=== PATIENT | female | born 1960 | race Caucasian/White ===

== ENCOUNTER 2017-10-24 07:05 | Day surgery (SDC) | payer OTHER ==
[~2017-10-24] VITALS: Ht 162.6 cm; Wt 116.6 kg
[~2017-10-24 07:05] MED LIST: ATEN50; ATOR10 PO; CENTRUM SILVER1 EAC3 PO; CYCL10 PO; DULO30 PO; ERGO400 PO; FURO40 PO; GABA100 PO; GLIP5 PO; Gemfibrozil600 MG PO; HYDR1TAB94 PO; LOTENSIN PO; METO100ER PO; NITR.4SL SL; POTA10T PO; PROBIOTIC1 EAC1 PO; SODBIC650 PO
== END 2017-10-24 09:31 | disposition home or self-care (01) ==
LOC: ORSCMMR 07:05
PROVIDERS: Surgery
PROC: 0DBH8ZX Excision of Cecum, Via Natural or Artificial Opening Endoscopic, Diagnostic (ICD-10-PCS; principal; 2017-10-24 08:30)
PROC: 0DBL8ZX Excision of Transverse Colon, Via Natural or Artificial Opening Endoscopic, Diagnostic (ICD-10-PCS; principal; 2017-10-24 08:30)
DX: Z12.11 Encounter for screening for malignant neoplasm of colon (principal); D12.0 Benign neoplasm of cecum; D12.3 Benign neoplasm of transverse colon; I10 Essential (primary) hypertension; I25.2 Old myocardial infarction; I25.10 Atherosclerotic heart disease of native coronary artery without angina pectoris; E11.9 Type 2 diabetes mellitus without complications; E66.01 Morbid (severe) obesity due to excess calories; Z68.41 Body mass index [BMI] 40.0-44.9, adult; Z79.899 Other long term (current) drug therapy
CPT/HCPCS: 82947; 88305; J7120

== ENCOUNTER → 2018-01-05 | Outpatient (CLI) | payer OTHER ==
[~2018-01-05] MED LIST changes: +ACET325 PO; +PRED20
== END ==
LOC: LAB SHORT 07:40 → PLD 07:40
DX: D22.5 Melanocytic nevi of trunk (principal)
CPT/HCPCS: 88305

== ENCOUNTER 2018-05-28 13:38 | Emergency (ER) | payer OTHER ==
[~2018-05-28] VITALS: Ht 165.1 cm; Wt 99.8 kg
[~2018-05-28 13:38] MED LIST changes: -ACET325 PO; -PRED20
== END 2018-05-28 14:35 | disposition home or self-care (01) ==
LOC: ER 13:38
DX: M79.671 Pain in right foot (principal); Z79.899 Other long term (current) drug therapy; I25.2 Old myocardial infarction; F17.290 Nicotine dependence, other tobacco product, uncomplicated
CPT/HCPCS: 73620; 99283-25

== ENCOUNTER 2018-06-01 17:07 | Inpatient (IN) | payer OTHER ==
[~2018-06-01] VITALS: Ht 165.1 cm; Wt 111.1 kg
[2018-06-01 19:19] LABS: BASOPHILS ABSOLUTE AUTO 0.05 K/mm3 (0.00-0.23); BASOPHILS PERCENT AUTO 1 % (0-2); EOSINOPHILS ABSOLUTE AUTO 0.16 K/mm3 (0.00-0.68); EOSINOPHILS PERCENT AUTO 2 % (0-6); Hematocrit 37.5 % (33.0-51.0); IMMATURE GRAN ABSOLUTE AUTO 0.06 K/mm3 (0.00-0.10); IMMATURE GRAN PERCENT AUTO 1 % (0-1); LYMPHOCYTES ABSOLUTE AUTO 1.92 K/mm3 (0.84-5.20); LYMPHOCYTES PERCENT AUTO 22 % (21-46); MONOCYTES ABSOLUTE AUTO 0.77 K/mm3 (0.16-1.47); MONOCYTES PERCENT AUTO 9 % (4-13); Mean Corpuscular HGB 29.4 pg (26.0-34.0); Mean Corpuscular Volume 92 fL (80-100); Mean Platelet Volume 9.4 fL (9.1-12.4); NEUTROPHILS ABSOLUTE AUTO 5.66 K/mm3 (1.96-9.15); NEUTROPHILS PERCENT AUTO 66 % (41-73); Platelet Count 259 K/mm3 (150-400); RDW Coefficient Variation 13.4 % (11.7-14.2); RDW Standard Deviation 45.5 fL (35.1-46.3); Red Blood Cell Count 4.08 M/mm3 (3.80-5.20); White Blood Cell Count 8.62 K/mm3 (4.00-11.30)
[2018-06-01 19:41] LABS: Alanine Aminotransfer (ALT/SGP 16 U/L (12-78); Albumin, Blood 3.4 g/dL (3.4-5.0); Albumin/Globulin Ratio 0.7 (0.8-1.8); Alk Phos 100 U/L (50-136); Anion Gap 13 mmol/L (6-16); Aspartate Aminotrans (AST/SGOT 12 U/L (12-37); Bilirubin, Total 0.3 mg/dL (0.1-1.0); Blood Urea Nitrogen 36 mg/dL (8-24); Bun/Creatinine Ratio 14.5 (12.0-20.0); CO2, Blood 19 mmol/L (21-32); Calcium, Blood 9.6 mg/dL (8.5-10.1); Chloride, Blood 106 mmol/L (98-108); Creatinine, Blood 2.48 mg/dL (0.40-1.00); Globulin, Blood 4.6 g/dL (2.2-4.0); Glomerular Filtration Rate 21 (60-); Glucose, Blood 124 mg/dL (70-99); Potassium, Blood 4.1 mmol/L (3.5-5.5); Sodium, Blood 138 mmol/L (136-145); Troponin I <0.015 ng/mL (0.000-0.040)
[2018-06-01 22:46] LABS: Uric Acid, Blood 12.3 mg/dL (2.6-6.0)
[2018-06-01 23:25] LABS: CPK Creatine Kinase 91 U/L (26-193); Magnesium, Blood 2.1 mg/dL (1.6-2.4); Phosphorus, Blood 2.8 mg/dL (2.5-4.9)
[2018-06-02 05:35] LABS: Hematocrit 33.1 % (33.0-51.0); Hemoglobin 10.6 g/dL (11.5-16.0); Mean Corpuscular HGB 29.5 pg (26.0-34.0); Mean Corpuscular Volume 92 fL (80-100); Mean Platelet Volume 9.4 fL (9.1-12.4); Platelet Count 196 K/mm3 (150-400); RDW Coefficient Variation 13.4 % (11.7-14.2); RDW Standard Deviation 45.6 fL (35.1-46.3); Red Blood Cell Count 3.59 M/mm3 (3.80-5.20); White Blood Cell Count 6.54 K/mm3 (4.00-11.30)
[2018-06-02 05:56] LABS: Bun/Creatinine Ratio 17.2 (12.0-20.0); Calcium, Blood 8.5 mg/dL (8.5-10.1); Creatinine, Blood 2.04 mg/dL (0.40-1.00); Potassium, Blood 3.7 mmol/L (3.5-5.5)
[2018-06-03 05:10] LABS: BASOPHILS ABSOLUTE AUTO 0.01 K/mm3 (0.00-0.23); BASOPHILS PERCENT AUTO 0 % (0-2); EOSINOPHILS ABSOLUTE AUTO 0.03 K/mm3 (0.00-0.68); EOSINOPHILS PERCENT AUTO 0 % (0-6); Hematocrit 33.2 % (33.0-51.0); Hemoglobin 10.6 g/dL (11.5-16.0); IMMATURE GRAN ABSOLUTE AUTO 0.06 K/mm3 (0.00-0.10); IMMATURE GRAN PERCENT AUTO 1 % (0-1); LYMPHOCYTES ABSOLUTE AUTO 1.04 K/mm3 (0.84-5.20); LYMPHOCYTES PERCENT AUTO 15 % (21-46); MONOCYTES ABSOLUTE AUTO 0.37 K/mm3 (0.16-1.47); MONOCYTES PERCENT AUTO 5 % (4-13); Mean Corpuscular HGB 29.3 pg (26.0-34.0); Mean Corpuscular HGB Conc 31.9 g/dL (31.5-36.5); Mean Corpuscular Volume 92 fL (80-100); Mean Platelet Volume 9.2 fL (9.1-12.4); NEUTROPHILS ABSOLUTE AUTO 5.35 K/mm3 (1.96-9.15); NEUTROPHILS PERCENT AUTO 78 % (41-73); Platelet Count 241 K/mm3 (150-400); RDW Standard Deviation 43.8 fL (35.1-46.3); Red Blood Cell Count 3.62 M/mm3 (3.80-5.20); White Blood Cell Count 6.86 K/mm3 (4.00-11.30)
[2018-06-03 05:31] LABS: Bun/Creatinine Ratio 22.3 (12.0-20.0); Calcium, Blood 8.7 mg/dL (8.5-10.1); Creatinine, Blood 1.12 mg/dL (0.40-1.00); Potassium, Blood 4.5 mmol/L (3.5-5.5)
[2018-06-03 05:39] LABS: Percent Saturation 19.5 % (15.0-50.0)
[2018-06-04 04:55] LABS: BASOPHILS ABSOLUTE AUTO 0.02 K/mm3 (0.00-0.23); BASOPHILS PERCENT AUTO 0 % (0-2); EOSINOPHILS ABSOLUTE AUTO 0.07 K/mm3 (0.00-0.68); EOSINOPHILS PERCENT AUTO 1 % (0-6); Hematocrit 32.7 % (33.0-51.0); Hemoglobin 10.6 g/dL (11.5-16.0); IMMATURE GRAN ABSOLUTE AUTO 0.08 K/mm3 (0.00-0.10); IMMATURE GRAN PERCENT AUTO 1 % (0-1); LYMPHOCYTES ABSOLUTE AUTO 1.47 K/mm3 (0.84-5.20); LYMPHOCYTES PERCENT AUTO 22 % (21-46); MONOCYTES ABSOLUTE AUTO 0.25 K/mm3 (0.16-1.47); MONOCYTES PERCENT AUTO 4 % (4-13); Mean Corpuscular HGB 29.2 pg (26.0-34.0); Mean Corpuscular HGB Conc 32.4 g/dL (31.5-36.5); Mean Corpuscular Volume 90 fL (80-100); NEUTROPHILS ABSOLUTE AUTO 4.82 K/mm3 (1.96-9.15); NEUTROPHILS PERCENT AUTO 72 % (41-73); Platelet Count 239 K/mm3 (150-400); RDW Standard Deviation 42.8 fL (35.1-46.3); Red Blood Cell Count 3.63 M/mm3 (3.80-5.20); White Blood Cell Count 6.71 K/mm3 (4.00-11.30)
[2018-06-04 05:13] LABS: Bun/Creatinine Ratio 20.9 (12.0-20.0); Calcium, Blood 8.8 mg/dL (8.5-10.1); Creatinine, Blood 1.15 mg/dL (0.40-1.00)
[2018-06-04 11:45] LABS: Source, Urine Clean Catch
[2018-06-04 11:50] LABS: Bilirubin, Urine Neg (Neg); Blood, Urine Neg (Neg); Glucose Qualitative, Urine Neg (Neg); Ketones, Urine Neg (Neg); Leukocyte Esterase, Urine 1+ (Neg); Nitrite, Urine Pos (Neg); Protein, Urine Neg (Neg); Specific Gravity, Urine 1.015 (1.003-1.022); Urobilinogen, Urine NORM (Normal)
[2018-06-04 12:18] LABS: Color, Urine Yellow (P-Yellow)
[2018-06-04 12:19] LABS: Appearance, Urine Hazy (Clear)
[2018-06-04 12:25] LABS: Bacteria Many /hpf; Red Blood Cells, Urine Not Seen /hpf (0-2); Squamous Epithelial Cells Mod /hpf (Few)
[2018-06-05 05:44] LABS: Creatinine, Blood 1.05 mg/dL (0.40-1.00); Potassium, Blood 3.7 mmol/L (3.5-5.5)
[2018-06-05] MEDS ORDERED: ACET325 PO (08:04)
[2018-06-05] MEDS ORDERED: PRED20 (08:05)
== END 2018-06-05 13:16 | disposition home health service (06) | DRG 684 ==
LOC: ER 17:07 → MEDS 22:51 → ENPENDDIS 06-05 07:30 → MEDS 06-05 13:16
PROVIDERS: Internal Medicine; Nurse Practitioner Acute Care
DX: N17.9 Acute kidney failure, unspecified (principal); I71.4 Abdominal aortic aneurysm, without rupture; E78.5 Hyperlipidemia, unspecified; F17.290 Nicotine dependence, other tobacco product, uncomplicated; E78.00 Pure hypercholesterolemia, unspecified; Z79.84 Long term (current) use of oral hypoglycemic drugs; M10.9 Gout, unspecified; E86.9 Volume depletion, unspecified; D64.9 Anemia, unspecified; M25.571 Pain in right ankle and joints of right foot; Z68.39 Body mass index [BMI] 39.0-39.9, adult; E66.9 Obesity, unspecified; N18.3 Chronic kidney disease, stage 3 (moderate); I12.9 Hypertensive chronic kidney disease with stage 1 through stage 4 chronic kidney disease, or unspecified chronic kidney disease; R00.0 Tachycardia, unspecified; F32.9 Major depressive disorder, single episode, unspecified; E11.65 Type 2 diabetes mellitus with hyperglycemia; E11.22 Type 2 diabetes mellitus with diabetic chronic kidney disease
CPT/HCPCS: 36415; 73700; 80048; 80053; 81001; 82550; 82570; 82728; 82947; 83540; 83550; 83735; 84100; 84484; 84550; 85025; 85027; 87077; 87086; 87186; 93005; 93010; 96360; 96361; 97110; 97116; 97161; 99285-25; G8978; G8979; J1644; J7030; J7120

== ENCOUNTER 2019-10-27 16:10 | Inpatient (IN) | payer OTHER ==
[~2019-10-27] VITALS: Ht 157.5 cm; Wt 81.7 kg
[~2019-10-27 16:10] MED LIST changes: +ACET325 PO; +METO50ER PO; +PRED20
[2019-10-27] MEDS ORDERED: METF500C PO (16:32)
[2019-10-27] MEDS ORDERED: BENA20 PO (16:32)
[2019-10-27] MEDS ORDERED: ALLO100 PO (16:32)
[2019-10-27] MEDS ORDERED: TOPI25C (16:33)
[2019-10-27] MEDS ORDERED: GEMF600 PO (16:33)
[2019-10-27] MEDS ORDERED: AMLO5 PO (16:33)
[2019-10-27] MEDS ORDERED: CYCL10 PO (16:34)
[2019-10-27] MEDS ORDERED: OXYB5 PO (16:34)
[2019-10-27] MEDS ORDERED: COLCHICINE0.6 MG PO (16:35)
[2019-10-27] MEDS ORDERED: BUPR75 PO ×2 (16:35→18:08)
[2019-10-27 17:12] LABS: Hematocrit 35.8 % (33.0-51.0); Hemoglobin 11.7 g/dL (11.5-16.0); Mean Corpuscular HGB 28.8 pg (26.0-34.0); Mean Corpuscular HGB Conc 32.7 g/dL (31.5-36.5); Mean Corpuscular Volume 88 fL (80-100); Platelet Count 464 K/mm3 (150-400); RDW Coefficient Variation 14.7 % (11.7-14.2); RDW Standard Deviation 47.7 fL (35.1-46.3); Red Blood Cell Count 4.06 M/mm3 (3.80-5.20); White Blood Cell Count 16.77 K/mm3 (4.00-11.30)
[2019-10-27 17:34] LABS: Albumin, Blood 1.8 g/dL (3.4-5.0); Albumin/Globulin Ratio 0.3 (0.8-1.8); Bilirubin, Total 0.6 mg/dL (0.1-1.0); Bun/Creatinine Ratio 29.7 (12.0-20.0); Calcium, Blood 9.6 mg/dL (8.5-10.1); Creatinine, Blood 1.58 mg/dL (0.40-1.00); Globulin, Blood 5.7 g/dL (2.2-4.0); Total Protein, Blood 7.5 g/dL (6.4-8.2)
[2019-10-27 17:55] LABS: BAND PERCENT MAN 8 % (0-8); BASOPHILS PERCENT MAN 0 % (0-2); EOSINOPHILS PERCENT MAN 0 % (0-6); LYMPHOCYTES PERCENT MAN 3 % (21-46); MONOCYTES PERCENT MAN 0 % (4-13); NEUTROPHILS ABSOLUTE MAN 16.26 K/mm3 (1.96-9.15); SEG NEUTROPHILS PERCENT MAN 89 % (41-73); TOTAL CELLS COUNTED 100
[2019-10-27] MEDS ORDERED: B-121000 MC3 PO (18:04)
[2019-10-27] MEDS ORDERED: Metformin HCl750 MG PO (18:04)
[2019-10-27] MEDS ORDERED: Benazepril HCl20 MG PO (18:05)
[2019-10-27] MEDS ORDERED: Oxybutynin Chlo10 MG PO (18:06)
[2019-10-27] MEDS ORDERED: TOPI25 PO (18:06)
[2019-10-27] MEDS ORDERED: DULO30 PO (18:10)
[2019-10-27] MEDS ORDERED: GEMFIBROZIL600 MG PO (18:10)
[2019-10-27 19:14] LABS: Influenza A Negative (NEGATIVE); Influenza B Negative (NEGATIVE)
--- NOTE | 2019-10-27 20:13 | NUR ---
PT TO SURGICAL FLOOR FROM ED. ORIENTED TO ROOM. PERSONAL BELONGINGS IN ROOM WITH PT. PT IS ON 3.5L O2 NC AND RR IS ABOUT 28-30. SHE IS VERY HARD OF HEARING. BED ALARM ON.
[2019-10-28 04:06] LABS: BASOPHILS ABSOLUTE AUTO 0.03 K/mm3 (0.00-0.23); BASOPHILS PERCENT AUTO 0 % (0-2); Hematocrit 30.7 % (33.0-51.0); Hemoglobin 9.9 g/dL (11.5-16.0); LYMPHOCYTES ABSOLUTE AUTO 0.59 K/mm3 (0.84-5.20); LYMPHOCYTES PERCENT AUTO 5 % (21-46); MONOCYTES ABSOLUTE AUTO 0.18 K/mm3 (0.16-1.47); MONOCYTES PERCENT AUTO 1 % (4-13); Mean Corpuscular HGB 28.9 pg (26.0-34.0); Mean Corpuscular HGB Conc 32.2 g/dL (31.5-36.5); Mean Corpuscular Volume 90 fL (80-100); Platelet Count 365 K/mm3 (150-400); RDW Coefficient Variation 14.9 % (11.7-14.2); RDW Standard Deviation 49.2 fL (35.1-46.3); Red Blood Cell Count 3.42 M/mm3 (3.80-5.20); White Blood Cell Count 12.82 K/mm3 (4.00-11.30)
[2019-10-28 04:07] LABS: EOSINOPHILS ABSOLUTE AUTO 0.02 K/mm3 (0.00-0.68); EOSINOPHILS PERCENT AUTO 0 % (0-6); IMMATURE GRAN ABSOLUTE AUTO 0.72 K/mm3 (0.00-0.10); IMMATURE GRAN PERCENT AUTO 6 % (0-1); NEUTROPHILS ABSOLUTE AUTO 11.28 K/mm3 (1.96-9.15); NEUTROPHILS PERCENT AUTO 88 % (41-73)
--- NOTE | 2019-10-28 04:08 | NUR ---
SHIFT SUMMARY PT IS A/O, HOWEVER SHE IS VERY HARD OF HEARING AND HAS A DIFFICULT TIME COMMUNICATING. NOTE PAD HAS BEEN USED TO COMMUNICATE WITH PT. PT IS INCONTINENT OF URINE AND HAS ATTENS IN PLACE. BEDDING WAS CHANGED THIS SHIFT. PT IS 2X ASSIST TO COMMODE. SHE HAS BEEN SHORT OF BREATH, REQUIRING 3-4L O2 NC. PT HAS HAD RESP TREATMENTS PRN. BED ALARM HAS BEEN ON. TELE IN PLACE. ASSISTED WITH ADL'S PRN.
[2019-10-28 04:23] LABS: Albumin, Blood 1.5 g/dL (3.4-5.0); Albumin/Globulin Ratio 0.3 (0.8-1.8); Bilirubin, Total 0.5 mg/dL (0.1-1.0); Bun/Creatinine Ratio 35.9 (12.0-20.0); Calcium, Blood 8.9 mg/dL (8.5-10.1); Creatinine, Blood 1.28 mg/dL (0.40-1.00); Globulin, Blood 4.8 g/dL (2.2-4.0); Total Protein, Blood 6.3 g/dL (6.4-8.2)
[2019-10-28 04:37] LABS: BAND PERCENT MAN 4 % (0-8); BASOPHILS PERCENT MAN 0 % (0-2); EOSINOPHILS PERCENT MAN 0 % (0-6); LYMPHOCYTES ABSOLUTE MAN 0.89 K/mm3 (0.84-5.20); LYMPHOCYTES PERCENT MAN 7 % (21-46); MONOCYTES PERCENT MAN 0 % (4-13); NEUTROPHILS ABSOLUTE MAN 11.79 K/mm3 (1.96-9.15); PROMYELOCYTE ABSOLUTE MAN 0.12 K/mm3 (0.00-0.00); PROMYELOCYTE PERCENT MAN 1 % (0-0); SEG NEUTROPHILS PERCENT MAN 88 % (41-73); TOTAL CELLS COUNTED 100
--- NOTE | 2019-10-28 11:05 | NUR ---
DR ALVAREZ CALLED WITH + BC RESULTS
--- NOTE | 2019-10-28 11:16 | NUR ---
Patient Authorized student to provide care today. 10/28/2019
--- NOTE | 2019-10-28 18:27 | NUR ---
SHIFT SUMMARY PATIENT BREATHING EASIER THAN FIRST NOTED THIS AM. HAS C/O LEFT FLANK PAIN WHICH PATIENT REPORTS HAS BEEN CONTROLLED WITH APAP. COUGH IMPROVED THIS AFTERNOON. TAKING PO W/O C/O. CALLS FOR ASSIST. NO ACUTE CHANGES.
--- NOTE | 2019-10-29 02:37 | NUR ---
@1945 ORDERS WERE RECIEVED FOR PAIN MEDICATION FOR PAIN 06/29. PAIN LOCATED IN THE RT LATERAL SIDE OF THE ABDOMEN AND RADIATED TO THE RT FRONT ABDOMEN. MEDICATED PER ORDERS. PATIENT DID HAVE SOME RELEIF INITIALLY. i DID RECIEVE NEW ORDERS @2330 FOR PAIN MEDICATIONS. AT THIS POINT IT WAS MORE APPATENT THAT THE PAIN WAS ASSOCIATED WITH BREATHING AND ATTEMPTS TO COUGH. PATIENT WAS MEDICATED PER ORDERS.
--- NOTE | 2019-10-29 04:06 | NUR ---
REPORT TO SHANE GASTON. NO ACUTE CHANGES. RT ABDOMINAL PAIN IS CONTROLLED WITH FENTANYL PRN. PT ALSO RECIEVED TYLENOL PO FOR HEADACHE THIS MORNING.
[2019-10-29 10:01] LABS: Hematocrit 31.6 % (33.0-51.0); Hemoglobin 10.1 g/dL (11.5-16.0); Mean Corpuscular Volume 91 fL (80-100); Mean Platelet Volume 9.8 fL (9.1-12.4); Platelet Count 387 K/mm3 (150-400); RDW Coefficient Variation 15.2 % (11.7-14.2); RDW Standard Deviation 50.7 fL (35.1-46.3); Red Blood Cell Count 3.48 M/mm3 (3.80-5.20); White Blood Cell Count 10.31 K/mm3 (4.00-11.30)
[2019-10-29 10:16] LABS: Anion Gap 10 mmol/L (6-16); Blood Urea Nitrogen 29 mg/dL (8-24); Bun/Creatinine Ratio 35.8 (12.0-20.0); CO2, Blood 16 mmol/L (21-32); Calcium, Blood 8.9 mg/dL (8.5-10.1); Chloride, Blood 111 mmol/L (98-108); Creatinine, Blood 0.81 mg/dL (0.40-1.00); Glomerular Filtration Rate >60 (60-); Glucose, Blood 93 mg/dL (70-99); Sodium, Blood 137 mmol/L (136-145)
[2019-10-29 11:21] LABS: BAND PERCENT MAN 2 % (0-8); BASOPHILS PERCENT MAN 0 % (0-2); EOSINOPHILS PERCENT MAN 2 % (0-6); LYMPHOCYTES ABSOLUTE MAN 0.51 K/mm3 (0.84-5.20); LYMPHOCYTES PERCENT MAN 5 % (21-46); MONOCYTES PERCENT MAN 1 % (4-13); MYELOCYTE PERCENT MAN 1 % (0-0); NEUTROPHILS ABSOLUTE MAN 9.38 K/mm3 (1.96-9.15); SEG NEUTROPHILS PERCENT MAN 89 % (41-73); TOTAL CELLS COUNTED 100
--- NOTE | 2019-10-29 17:46 | NUR ---
SUMMARY PATIENT CALLING OUT AND GRASPING RIGHT FLANK AT TIMES AND REPORTS PAIN IN THIS AREA, PATIENT MOANS AND CALLS OUT AT TIMES WHILE SHE IS AWAKE.. PATIENT IS SLEEPING SOUNDLY AT THIS TIME WITH EVEN, UNLABORED RESPIRATIONS. PT HAS OCC. DRY COUGH. BARBI. PO FOOD AND FLUIDS WITHOUT NAUSEA. PATIENT REPORTS MUCH DIFFICULTY HEARING SO COMMUNICATING BY WRITING NOTES AND LETTER BOARD. PER PATIENTS DAUGHTER PATIENT IS NORMALLY HARD OF HEARING BUT NOT TO THE EXTENT THAT IT IS NECESSARY TO COMMUNICATE WITH WRITTEN NOTES.
--- NOTE | 2019-10-30 04:27 | NUR ---
SHIFT SUMMARY PT HAS BEEN AA0X4, VSS. PT IS VERY H.O.H. SO IT IS DIFFICULT TO UNDERSTAND AT TIMES. PATIENT HAS BEEN REPOSITIONING SELF IN BED FREQUENTLTY AND DENIED PAIN DURING SHIFT WHEN ASKED. SATS >92% DURING SHIFT AND PT REPORTS SOB BUT STATED THAT WAS HER NORMAL. PT UP TO VOID WITH ASSIST. LUNG SOUNDS WERE COARSE AND DIMINISHED THROUGHOUT, PT STATED SHE "FELT BETTER". TOLERATING PO WELL.
[2019-10-30 04:56] LABS: Hematocrit 32.2 % (33.0-51.0); Hemoglobin 10.1 g/dL (11.5-16.0); Mean Corpuscular HGB 28.9 pg (26.0-34.0); Mean Corpuscular HGB Conc 31.4 g/dL (31.5-36.5); Mean Corpuscular Volume 92 fL (80-100); Mean Platelet Volume 9.6 fL (9.1-12.4); Platelet Count 384 K/mm3 (150-400); RDW Coefficient Variation 15.6 % (11.7-14.2); Red Blood Cell Count 3.49 M/mm3 (3.80-5.20); White Blood Cell Count 10.03 K/mm3 (4.00-11.30)
[2019-10-30 05:11] LABS: Anion Gap 11 mmol/L (6-16); Blood Urea Nitrogen 22 mg/dL (8-24); Bun/Creatinine Ratio 29.9 (12.0-20.0); CO2, Blood 17 mmol/L (21-32); Calcium, Blood 8.6 mg/dL (8.5-10.1); Chloride, Blood 112 mmol/L (98-108); Creatinine, Blood 0.74 mg/dL (0.40-1.00); Glomerular Filtration Rate >60 (60-); Glucose, Blood 97 mg/dL (70-99); Potassium, Blood 3.5 mmol/L (3.5-5.5); Sodium, Blood 140 mmol/L (136-145)
[2019-10-30 05:15] LABS: BAND PERCENT MAN 6 % (0-8); BASOPHILS PERCENT MAN 0 % (0-2); EOSINOPHILS PERCENT MAN 3 % (0-6); LYMPHOCYTES PERCENT MAN 9 % (21-46); METAMYELOCYTE PERCENT MAN 2 % (0-0); MONOCYTES PERCENT MAN 2 % (4-13); MYELOCYTE PERCENT MAN 1 % (0-0); NEUTROPHILS ABSOLUTE MAN 8.32 K/mm3 (1.96-9.15); SEG NEUTROPHILS PERCENT MAN 77 % (41-73); TOTAL CELLS COUNTED 100
--- NOTE | 2019-10-30 18:27 | NUR ---
SUMMARY DENIES ANY SOB BUT PT APPEARS EASILY SOB WITH LITTLE ACTIVITY, CONT. TO HAVE MOIST COUGH, PRODUCTIVE OF PINK TINGED/GREEN SPUTUM THIS AFTERNOON, SATS 94-97% ON RA, TOOK A SHOWER TODAY, TOLERATED WELL, VSS, AFEBRILE, NO ACUTE CHANGES THIS SHIFT.
--- NOTE | 2019-10-31 03:09 | NUR ---
SPOKE TO DR NICHOLAS ABOUT PTS INCREASED RESPIRATIONS AND CRACKLES THROUGHOUT. ORDERS GIVEN TO GET A CHEST X-RAY AND FOLLOW UP WITH DR NICHOLAS.
--- NOTE | 2019-10-31 03:37 | NUR ---
CHEST X-RAY DONE. DR NICHOLAS AWARE. PLAN TO COME AND SEE PT.
--- NOTE | 2019-10-31 03:53 | NUR ---
DR NICHOLAS IN TO SEE PT. PT APPEARS TO BE BREATHING BETTER SINCE R.T. WORKED WITH HER. PLAN TO CONTINUE TO OBSERVE PT.
--- NOTE | 2019-10-31 04:34 | NUR ---
SHIFT SUMMARY PT ALERT AND ORIENTED, DIFFICULT TO UNDERSTAND AT TIMES. HAS BEEN HAVING SOME SMALL AUDITORY AND VISUAL HALLUCINATIONS, SHE STATED THAT THIS HAPPENS TO HER SOMETIMES. VSS RESPIRATIONS ELEVATED AT 3AM CHECK. LUNG SOUNDS WERE VERY CRACKLY. CHEST X-RAY ORDERED AND NO NEW ORDERS GIVEN AT THIS TIME. RESPIRATORY THERAPY WORKED WITH PT AND SHE IS NOT STRUGGLING TO BREATH MUCH, RESPIRATIONS WERE DOWN TO 18-20. PT HAS BEEN UP TO VOID WITH MINIMAL ASSIST, SHE HAS NOT BEEN USIGN CALL LIGHT EVEN WITH FREQUENT REEDUCATION. PT HAS BEEN COOPERATIVE DURING SHIFT.
[2019-10-31 05:02] LABS: Hematocrit 34.3 % (33.0-51.0); Hemoglobin 10.6 g/dL (11.5-16.0); Mean Corpuscular HGB 28.9 pg (26.0-34.0); Mean Corpuscular HGB Conc 30.9 g/dL (31.5-36.5); Mean Corpuscular Volume 94 fL (80-100); Mean Platelet Volume 9.6 fL (9.1-12.4); Platelet Count 362 K/mm3 (150-400); RDW Coefficient Variation 15.4 % (11.7-14.2); RDW Standard Deviation 53.2 fL (35.1-46.3); Red Blood Cell Count 3.67 M/mm3 (3.80-5.20); White Blood Cell Count 10.89 K/mm3 (4.00-11.30)
[2019-10-31 05:20] LABS: Albumin, Blood 1.6 g/dL (3.4-5.0); Anion Gap 10 mmol/L (6-16); Blood Urea Nitrogen 15 mg/dL (8-24); Bun/Creatinine Ratio 24.8 (12.0-20.0); CO2, Blood 19 mmol/L (21-32); Calcium, Blood 8.4 mg/dL (8.5-10.1); Chloride, Blood 111 mmol/L (98-108); Glomerular Filtration Rate >60 (60-); Glucose, Blood 123 mg/dL (70-99); Phosphorus, Blood 2.9 mg/dL (2.5-4.9); Potassium, Blood 3.4 mmol/L (3.5-5.5); Sodium, Blood 140 mmol/L (136-145)
[2019-10-31 05:28] LABS: BAND PERCENT MAN 10 % (0-8); BASOPHILS PERCENT MAN 0 % (0-2); EOSINOPHILS ABSOLUTE MAN 0.21 K/mm3 (0.00-0.68); EOSINOPHILS PERCENT MAN 2 % (0-6); LYMPHOCYTES ABSOLUTE MAN 0.54 K/mm3 (0.84-5.20); LYMPHOCYTES PERCENT MAN 5 % (21-46); METAMYELOCYTE ABSOLUTE MAN 0.21 K/mm3 (0.00-0.00); METAMYELOCYTE PERCENT MAN 2 % (0-0); MONOCYTES ABSOLUTE MAN 0.21 K/mm3 (0.16-1.47); MONOCYTES PERCENT MAN 2 % (4-13); MYELOCYTE PERCENT MAN 1 % (0-0); NEUTROPHILS ABSOLUTE MAN 9.58 K/mm3 (1.96-9.15); SEG NEUTROPHILS PERCENT MAN 78 % (41-73); TOTAL CELLS COUNTED 100
--- NOTE | 2019-10-31 17:01 | NUR ---
SHIFT SUMMARY PT IS A/O ALTHOUGH SHE DOES HAVE DIFFICULTY UNDERSTANDING SOME THINGS AND IS VERY HARD OF HEARING; PT DOES WELL WITH READING NOTES HOWEVER. SHE HAS HAD SOME AUDITORY HALLUCINATIONS DURING THE DAY. SHE IS IND. IN WITH STANDBY ASSIST. TOLERATING PO INTAKE, VOIDING. PT HAS BEEN SEEN BY RT PRN. AND HAS BEEN ON RA THROUGHOUT THE DAY. PT HAS CHRONIC PAIN AND WAS GIVEN PAIN MED PER ORDERS; SEE EMAR.
--- NOTE | 2019-11-01 04:02 | NUR ---
SHIFT SUMMARY PT ALERT AND ORIENTED. DIFFICULTY UNDERSTANDING WHAT IS ASKED AT TIMES. VERY HARD OF HEARING. LUNGS HAVE FINE CRACKLES IN UPPER LOBES AND COARSE IN LOWER. SHE HAS SOUNDED BETTER TOWARDS THE END OF SHIFT. PT HAS BEEN REPOSITIONING FREQUENTLY IN BED AND HAS BEEN COOPERATIVE OF CARE. NO HALLUCINATIONS REPORTED TONIGHT. PT VOIDING AND TOLERATING PO. HAS COMPLAINED OF MINIMAL SOB THIS SHIFT. NEW POWERGLIDE PLACED. PT TOLERATING WELL.
[2019-11-01 04:07] LABS: BASOPHILS PERCENT AUTO 1 % (0-2); Hematocrit 31.2 % (33.0-51.0); Hemoglobin 9.7 g/dL (11.5-16.0); LYMPHOCYTES ABSOLUTE AUTO 1.17 K/mm3 (0.84-5.20); LYMPHOCYTES PERCENT AUTO 10 % (21-46); MONOCYTES ABSOLUTE AUTO 0.45 K/mm3 (0.16-1.47); MONOCYTES PERCENT AUTO 4 % (4-13); Mean Corpuscular HGB Conc 31.1 g/dL (31.5-36.5); Mean Corpuscular Volume 93 fL (80-100); Mean Platelet Volume 9.3 fL (9.1-12.4); NRBC ABSOLUTE 0.05 K/mm3 (0.00-0.02); NRBC Auto 0.4 /100 WBC (0.0-0.2); Platelet Count 326 K/mm3 (150-400); RDW Coefficient Variation 14.9 % (11.7-14.2); RDW Standard Deviation 51.8 fL (35.1-46.3); Red Blood Cell Count 3.35 M/mm3 (3.80-5.20); White Blood Cell Count 11.33 K/mm3 (4.00-11.30)
[2019-11-01 04:09] LABS: EOSINOPHILS ABSOLUTE AUTO 0.09 K/mm3 (0.00-0.68); EOSINOPHILS PERCENT AUTO 1 % (0-6); IMMATURE GRAN ABSOLUTE AUTO 1.61 K/mm3 (0.00-0.10); IMMATURE GRAN PERCENT AUTO 14 % (0-1); NEUTROPHILS ABSOLUTE AUTO 7.91 K/mm3 (1.96-9.15); NEUTROPHILS PERCENT AUTO 70 % (41-73)
[2019-11-01 04:37] LABS: BAND PERCENT MAN 3 % (0-8); BASOPHILS PERCENT MAN 0 % (0-2); BLASTS PERCENT MAN 1 % (0-0); EOSINOPHILS PERCENT MAN 0 % (0-6); LYMPHOCYTES ABSOLUTE MAN 0.79 K/mm3 (0.84-5.20); LYMPHOCYTES PERCENT MAN 7 % (21-46); METAMYELOCYTE ABSOLUTE MAN 0.33 K/mm3 (0.00-0.00); METAMYELOCYTE PERCENT MAN 3 % (0-0); MONOCYTES ABSOLUTE MAN 0.56 K/mm3 (0.16-1.47); MONOCYTES PERCENT MAN 5 % (4-13); MYELOCYTE ABSOLUTE MAN 0.33 K/mm3 (0.00-0.00); MYELOCYTE PERCENT MAN 3 % (0-0); NEUTROPHILS ABSOLUTE MAN 9.17 K/mm3 (1.96-9.15); SEG NEUTROPHILS PERCENT MAN 78 % (41-73); TOTAL CELLS COUNTED 100
--- NOTE | 2019-11-01 10:41 | NUR ---
pt gave me permission to assist with her care 11/01/2019.
--- NOTE | 2019-11-01 17:21 | NUR ---
SHIFT SUMMARY PT EATING AND DRINKING, VOIDING, PASSING GAS. PT BEEN COUGHING OFF AND ON T/O DAY. PT BEEN ASSISTED WITH ADL'S PRN. PT WAS MED PRN FOR PAIN. PT FAMILY IN TO SEE PT TODAY.
[2019-11-02 04:24] LABS: BASOPHILS ABSOLUTE AUTO 0.09 K/mm3 (0.00-0.23); BASOPHILS PERCENT AUTO 1 % (0-2); Hematocrit 32.4 % (33.0-51.0); LYMPHOCYTES ABSOLUTE AUTO 0.98 K/mm3 (0.84-5.20); LYMPHOCYTES PERCENT AUTO 10 % (21-46); MONOCYTES ABSOLUTE AUTO 0.43 K/mm3 (0.16-1.47); MONOCYTES PERCENT AUTO 4 % (4-13); Mean Corpuscular HGB 28.8 pg (26.0-34.0); Mean Corpuscular HGB Conc 30.9 g/dL (31.5-36.5); Mean Corpuscular Volume 93 fL (80-100); Mean Platelet Volume 9.3 fL (9.1-12.4); NRBC ABSOLUTE 0.09 K/mm3 (0.00-0.02); NRBC Auto 0.9 /100 WBC (0.0-0.2); Platelet Count 317 K/mm3 (150-400); RDW Coefficient Variation 14.8 % (11.7-14.2); RDW Standard Deviation 51.2 fL (35.1-46.3); Red Blood Cell Count 3.47 M/mm3 (3.80-5.20); White Blood Cell Count 10.33 K/mm3 (4.00-11.30)
[2019-11-02 04:26] LABS: EOSINOPHILS ABSOLUTE AUTO 0.07 K/mm3 (0.00-0.68); EOSINOPHILS PERCENT AUTO 1 % (0-6); IMMATURE GRAN ABSOLUTE AUTO 1.69 K/mm3 (0.00-0.10); IMMATURE GRAN PERCENT AUTO 16 % (0-1); NEUTROPHILS ABSOLUTE AUTO 7.07 K/mm3 (1.96-9.15); NEUTROPHILS PERCENT AUTO 68 % (41-73)
[2019-11-02 04:40] LABS: Albumin, Blood 1.6 g/dL (3.4-5.0); Anion Gap 9 mmol/L (6-16); Blood Urea Nitrogen 9 mg/dL (8-24); Bun/Creatinine Ratio 14.9 (12.0-20.0); CO2, Blood 22 mmol/L (21-32); Calcium, Blood 8.3 mg/dL (8.5-10.1); Chloride, Blood 109 mmol/L (98-108); Creatinine, Blood 0.61 mg/dL (0.40-1.00); Glomerular Filtration Rate >60 (60-); Glucose, Blood 135 mg/dL (70-99); Phosphorus, Blood 3.4 mg/dL (2.5-4.9); Potassium, Blood 3.5 mmol/L (3.5-5.5); Sodium, Blood 140 mmol/L (136-145)
[2019-11-02 04:45] LABS: BAND PERCENT MAN 4 % (0-8); BASOPHILS PERCENT MAN 0 % (0-2); EOSINOPHILS PERCENT MAN 2 % (0-6); LYMPHOCYTES ABSOLUTE MAN 0.72 K/mm3 (0.84-5.20); LYMPHOCYTES PERCENT MAN 7 % (21-46); METAMYELOCYTE PERCENT MAN 3 % (0-0); MONOCYTES PERCENT MAN 2 % (4-13); MYELOCYTE PERCENT MAN 2 % (0-0); NEUTROPHILS ABSOLUTE MAN 8.57 K/mm3 (1.96-9.15); PROMYELOCYTE PERCENT MAN 1 % (0-0); SEG NEUTROPHILS PERCENT MAN 79 % (41-73); TOTAL CELLS COUNTED 100
--- NOTE | 2019-11-02 05:27 | NUR ---
SHIFT SUMMARY PT ALERT AND ORIENTED. HEARD OF HEARING, DIFFICULT TO UNDERSTAND AT TIMES R/T [place]. FOLLOWS DIRECTIONS AND IS COOPERATIVE. PT HAS BEEN TOLERATING PO WELL. UP TO BSC WITH 1 ASSIST AND VOIDING. PT HAS BEEN MEDICATED FOR PAIN ONE TIME. NO FURTHER COMPLAINTS OF PAIN. LUNGS ARE FINE CRACKLES IN THE LOWER LOBES, SHE SEEMS TO BE BREATHING BETTER RESPIRATIONS ARE IN THE LOW 20'S AND SATS GREATER THAN 92% ON RA. CALLING APPROPRIATLY DURING SHIFT.
--- NOTE | 2019-11-02 12:55 | NUR ---
DISCUSSED PT'S STATUS WITH DR ALVAREZ.
--- NOTE | 2019-11-02 16:52 | NUR ---
SHIFT SUMMARY PT EATING AND DRINKING, VOIDING. PT CONT TO BE SHORT OF BREATH WITH ACTIVITY AT TIMES. PT BEEN ASSISTED WITH ADL'S PRN. PT BEEN ENC TO USE I/S AND FLUTTER VALVE. TELE WAS DC'D PER DR ALVAREZ TODAY.
[2019-11-03 06:54] LABS: Hemoglobin 10.1 g/dL (11.5-16.0); Mean Corpuscular HGB 28.9 pg (26.0-34.0); Mean Corpuscular HGB Conc 30.6 g/dL (31.5-36.5); Mean Corpuscular Volume 95 fL (80-100); Mean Platelet Volume 9.1 fL (9.1-12.4); NRBC ABSOLUTE 0.05 K/mm3 (0.00-0.02); NRBC Auto 0.5 /100 WBC (0.0-0.2); Platelet Count 300 K/mm3 (150-400); RDW Coefficient Variation 14.6 % (11.7-14.2); RDW Standard Deviation 50.8 fL (35.1-46.3); Red Blood Cell Count 3.49 M/mm3 (3.80-5.20); White Blood Cell Count 9.79 K/mm3 (4.00-11.30)
[2019-11-03 07:46] LABS: BAND PERCENT MAN 4 % (0-8); BASOPHILS PERCENT MAN 0 % (0-2); EOSINOPHILS ABSOLUTE MAN 0.19 K/mm3 (0.00-0.68); EOSINOPHILS PERCENT MAN 2 % (0-6); LYMPHOCYTES ABSOLUTE MAN 1.37 K/mm3 (0.84-5.20); LYMPHOCYTES PERCENT MAN 14 % (21-46); METAMYELOCYTE ABSOLUTE MAN 0.09 K/mm3 (0.00-0.00); METAMYELOCYTE PERCENT MAN 1 % (0-0); MONOCYTES ABSOLUTE MAN 0.48 K/mm3 (0.16-1.47); MONOCYTES PERCENT MAN 5 % (4-13); MYELOCYTE ABSOLUTE MAN 0.19 K/mm3 (0.00-0.00); MYELOCYTE PERCENT MAN 2 % (0-0); NEUTROPHILS ABSOLUTE MAN 7.44 K/mm3 (1.96-9.15); SEG NEUTROPHILS PERCENT MAN 72 % (41-73); TOTAL CELLS COUNTED 100
--- NOTE | 2019-11-03 07:47 | NUR ---
PT VSS T/O NIGHT. SATS >90% ON RA. PT REP LESS SOB W/ACTIVITY. CXR DONE THIS AM, AWAITING RESULTS. ABX CONT PER ORDERS. PT DENIED PAINN/V. PT INDEP TO BSC. REPORT GIVEN TO DAY RN.
[2019-11-03] MEDS ORDERED: TESSALON PERLE100 MG PO (11:19)
[2019-11-03] MEDS ORDERED: Mucinex600 MG PO (11:23)
[2019-11-03] MEDS ORDERED: LACT PO (11:25)
[2019-11-03] MEDS ORDERED: Ventolin/Prove6.7 GM INH (11:28)
[2019-11-03] MEDS ORDERED: CEFP200 PO (11:29)
[2019-11-03] MEDS ORDERED: CLIN300 PO (11:31)
--- NOTE | 2019-11-03 12:31 | NUR ---
DISCHARGE PT HAS DONE WELL TODAY. CONTINUES TO HAVE SOME DYSPNEA WITH ACTIVITY TO BATHROOM AND BACK. PT STATES SHE IS READY TO GO HOME SEVERAL TIMES. ATTEMPTS TO LEAVE PRIOR TO D/C EDUCATION BUT SPOUSE REDIRECTS HER. SPOUSE AND PT EDUCATED ON NEW MEDS AND SMOKING CESS. W/C ESCORT OUT.
== END 2019-11-03 11:55 | disposition home or self-care (01) | DRG 871 ==
LOC: ER 16:10 → MEDS 19:45 → SURS 20:23
PROVIDERS: Emergency Medicine; Internal Medicine; ADMIT Internal Medicine
DX: A40.9 Streptococcal sepsis, unspecified (principal); J69.0 Pneumonitis due to inhalation of food and vomit; N17.0 Acute kidney failure with tubular necrosis; E87.2 Acidosis; E11.9 Type 2 diabetes mellitus without complications; E78.5 Hyperlipidemia, unspecified; I71.2 Thoracic aortic aneurysm, without rupture; F17.290 Nicotine dependence, other tobacco product, uncomplicated; E86.0 Dehydration; G43.709 Chronic migraine without aura, not intractable, without status migrainosus; M10.9 Gout, unspecified; H91.90 Unspecified hearing loss, unspecified ear; Z79.84 Long term (current) use of oral hypoglycemic drugs
CPT/HCPCS: 36415; 71045; 71046; 74176; 80048; 80053; 80069; 82947; 83605; 84145; 85025; 87040; 87070; 87077; 87186; 87205; 87804; 92610; 93005; 93010; 94640; 94667; 94760; 96365; 96367; 99285-25; A9270; C1751; J0456; J0696; J1644; J3010; J7030; J7050

== ENCOUNTER → 2021-08-30 | Outpatient (CLI) | payer OTHER ==
[~2021-08-30] MED LIST changes: +ALLO100 PO; +AMLO5 PO; +B-121000 MC3 PO; +BENA20 PO; +BUPR75 PO; +Benazepril HCl20 MG PO; +CEFP200 PO; +CLIN300 PO; +COLCHICINE0.6 MG PO; +GEMF600 PO; +GEMFIBROZIL600 MG PO; +LACT PO; +METF500C PO; +Metformin HCl750 MG PO; +Mucinex600 MG PO; +OXYB5 PO; +Oxybutynin Chlo10 MG PO; +TESSALON PERLE100 MG PO; +TOPI25 PO; +TOPI25C; +Ventolin/Prove6.7 GM INH
[2021-08-30 18:05] LABS: BASOPHILS ABSOLUTE AUTO 0.06 K/mm3 (0.00-0.23); BASOPHILS PERCENT AUTO 1 % (0-2); EOSINOPHILS ABSOLUTE AUTO 0.37 K/mm3 (0.00-0.68); EOSINOPHILS PERCENT AUTO 5 % (0-6); Hematocrit 41.6 % (33.0-51.0); Hemoglobin 13.1 g/dL (11.5-16.0); IMMATURE GRAN ABSOLUTE AUTO 0.12 K/mm3 (0.00-0.10); IMMATURE GRAN PERCENT AUTO 2 % (0-1); LYMPHOCYTES ABSOLUTE AUTO 1.71 K/mm3 (0.84-5.20); LYMPHOCYTES PERCENT AUTO 23 % (21-46); MONOCYTES ABSOLUTE AUTO 0.47 K/mm3 (0.16-1.47); MONOCYTES PERCENT AUTO 6 % (4-13); Mean Corpuscular HGB 28.4 pg (26.0-34.0); Mean Corpuscular HGB Conc 31.5 g/dL (31.5-36.5); Mean Corpuscular Volume 90 fL (80-100); Mean Platelet Volume 9.3 fL (9.1-12.4); NEUTROPHILS ABSOLUTE AUTO 4.88 K/mm3 (1.96-9.15); NEUTROPHILS PERCENT AUTO 64 % (41-73); Platelet Count 294 K/mm3 (150-400); RDW Coefficient Variation 15.1 % (11.7-14.2); Red Blood Cell Count 4.61 M/mm3 (3.80-5.20); White Blood Cell Count 7.61 K/mm3 (4.00-11.30)
[2021-08-30 18:34] LABS: Alanine Aminotransfer (ALT/SGP 48 U/L (12-78); Albumin, Blood 2.9 g/dL (3.4-5.0); Albumin/Globulin Ratio 0.7 (0.8-1.8); Alk Phos 127 U/L (50-136); Anion Gap 7 mmol/L (6-16); Aspartate Aminotrans (AST/SGOT 55 U/L (12-37); Bilirubin, Total 0.3 mg/dL (0.1-1.0); Blood Urea Nitrogen 11 mg/dL (8-24); Bun/Creatinine Ratio 13.3 (12.0-20.0); CO2, Blood 22 mmol/L (21-32); Chloride, Blood 111 mmol/L (98-108); Creatinine, Blood 0.83 mg/dL (0.40-1.00); Globulin, Blood 4.3 g/dL (2.2-4.0); Glomerular Filtration Rate >60 (60-); Glucose, Blood 212 mg/dL (70-99); Sodium, Blood 140 mmol/L (136-145); Total Protein, Blood 7.2 g/dL (6.4-8.2)
== END | disposition home or self-care (01) ==
LOC: LAB SHORT 16:31 → LAB 16:31
PROVIDERS: Nurse Practitioner Family
DX: C34.90 Malignant neoplasm of unspecified part of unspecified bronchus or lung (principal); E11.9 Type 2 diabetes mellitus without complications; I10 Essential (primary) hypertension; M10.9 Gout, unspecified
CPT/HCPCS: 80053; 83036; 84443; 85025

== ENCOUNTER → 2021-09-17 | Outpatient (CLI) | payer OTHER ==
[2021-09-17 18:32] LABS: CHOL/HDL RATIO 4.5; Cholesterol 216 mg/dL (50-200); HDL Cholesterol 48 mg/dL (>39); LDL/HDL RATIO Unable to Calculate; Low Density Lipoprotein Chol Unable to Calculate mg/dL (0-110); Triglycerides 417 mg/dL (30-160); Very Low Density Lipoprot Chol Unable to Calculate mg/dL (6-32)
[2021-09-17 18:47] LABS: LDL Direct Measurement 110 mg/dL (0-130)
== END ==
LOC: LAB 17:19 → LAB SHORT 17:19
PROVIDERS: Nurse Practitioner Family
DX: Z13.6 Encounter for screening for cardiovascular disorders (principal)
CPT/HCPCS: 80061; 83721

== ENCOUNTER → 2022-03-21 | Outpatient (CLI) | payer OTHER ==
[2022-03-21 18:12] LABS: BASOPHILS ABSOLUTE AUTO 0.05 K/mm3 (0.00-0.23); BASOPHILS PERCENT AUTO 1 % (0-2); EOSINOPHILS ABSOLUTE AUTO 0.34 K/mm3 (0.00-0.68); EOSINOPHILS PERCENT AUTO 5 % (0-6); Hematocrit 44.9 % (33.0-51.0); Hemoglobin 14.6 g/dL (11.5-16.0); IMMATURE GRAN ABSOLUTE AUTO 0.04 K/mm3 (0.00-0.10); IMMATURE GRAN PERCENT AUTO 1 % (0-1); LYMPHOCYTES ABSOLUTE AUTO 1.92 K/mm3 (0.84-5.20); LYMPHOCYTES PERCENT AUTO 27 % (21-46); MONOCYTES PERCENT AUTO 7 % (4-13); Mean Corpuscular HGB 29.3 pg (26.0-34.0); Mean Corpuscular HGB Conc 32.5 g/dL (31.5-36.5); Mean Corpuscular Volume 90 fL (80-100); NEUTROPHILS ABSOLUTE AUTO 4.26 K/mm3 (1.96-9.15); NEUTROPHILS PERCENT AUTO 60 % (41-73); Platelet Count 247 K/mm3 (150-400); RDW Coefficient Variation 14.5 % (11.7-14.2); Red Blood Cell Count 4.99 M/mm3 (3.80-5.20); White Blood Cell Count 7.11 K/mm3 (4.00-11.30)
[2022-03-21 19:23] LABS: Alanine Aminotransfer (ALT/SGP 58 U/L (12-78); Albumin, Blood 3.4 g/dL (3.4-5.0); Alk Phos 137 U/L (50-136); Anion Gap 9 mmol/L (6-16); Aspartate Aminotrans (AST/SGOT 79 U/L (12-37); Bilirubin, Total 0.5 mg/dL (0.1-1.0); Blood Urea Nitrogen 12 mg/dL (8-24); CHOL/HDL RATIO 5.1; CO2, Blood 23 mmol/L (21-32); Calcium, Blood 9.3 mg/dL (8.5-10.1); Chloride, Blood 104 mmol/L (98-108); Cholesterol 252 mg/dL (50-200); Creatinine, Blood 0.86 mg/dL (0.40-1.00); Globulin, Blood 3.5 g/dL (2.2-4.0); Glomerular Filtration Rate 78 (60-); Glucose, Blood 147 mg/dL (70-99); HDL Cholesterol 49 mg/dL (>39); LDL/HDL RATIO Unable to Calculate; Low Density Lipoprotein Chol Unable to Calculate mg/dL (0-110); Potassium, Blood 4.3 mmol/L (3.5-5.5); Sodium, Blood 136 mmol/L (136-145); Total Protein, Blood 6.9 g/dL (6.4-8.2); Triglycerides 666 mg/dL (30-160); Very Low Density Lipoprot Chol Unable to Calculate mg/dL (6-32)
[2022-03-21 19:39] LABS: Microalb/Creat Ratio UR, Rand Unable to Calculate mg/g (0.000-30.000); Microalbumin, Random Urine >6800.000 mg/L (0.000-20.000)
== END | disposition home or self-care (01) ==
LOC: LAB SHORT 16:30 → LAB 16:30
PROVIDERS: Nurse Practitioner Family
DX: E11.9 Type 2 diabetes mellitus without complications (principal); F32.A Depression, unspecified
CPT/HCPCS: 80053; 80061; 82043; 82306; 82570; 83036; 84443; 85025

== ENCOUNTER → 2022-10-23 | Outpatient (CLI) | payer OTHER ==
[2022-10-23 20:27] LABS: LDL/HDL RATIO 1.3; Very Low Density Lipoprot Chol 61 mg/dL (6-32)
[2022-10-23 20:28] LABS: CHOL/HDL RATIO 3.9; Cholesterol 145 mg/dL (50-200); HDL Cholesterol 37 mg/dL (>39); Low Density Lipoprotein Chol 47 mg/dL (0-110); Triglycerides 305 mg/dL (30-160)
== END | disposition home or self-care (01) ==
LOC: LAB SHORT 12:00
PROVIDERS: Nurse Practitioner Family
DX: E78.5 Hyperlipidemia, unspecified (principal)
CPT/HCPCS: 80061; 82306

== ENCOUNTER → 2023-03-03 | Outpatient (CLI) | payer OTHER ==
[2023-03-03 18:23] LABS: BASOPHILS ABSOLUTE AUTO 0.04 K/mm3 (0.00-0.23); BASOPHILS PERCENT AUTO 1 % (0-2); EOSINOPHILS ABSOLUTE AUTO 0.21 K/mm3 (0.00-0.68); EOSINOPHILS PERCENT AUTO 4 % (0-6); Hematocrit 38.3 % (33.0-51.0); Hemoglobin 12.5 g/dL (11.5-16.0); IMMATURE GRAN ABSOLUTE AUTO 0.04 K/mm3 (0.00-0.10); IMMATURE GRAN PERCENT AUTO 1 % (0-1); LYMPHOCYTES ABSOLUTE AUTO 2.12 K/mm3 (0.84-5.20); LYMPHOCYTES PERCENT AUTO 37 % (21-46); MONOCYTES ABSOLUTE AUTO 0.46 K/mm3 (0.16-1.47); MONOCYTES PERCENT AUTO 8 % (4-13); Mean Corpuscular HGB 29.4 pg (26.0-34.0); Mean Corpuscular HGB Conc 32.6 g/dL (31.5-36.5); Mean Corpuscular Volume 90 fL (80-100); Mean Platelet Volume 10.1 fL (9.1-12.4); NEUTROPHILS ABSOLUTE AUTO 2.88 K/mm3 (1.96-9.15); NEUTROPHILS PERCENT AUTO 50 % (41-73); Platelet Count 229 K/mm3 (150-400); RDW Coefficient Variation 14.1 % (11.7-14.2); Red Blood Cell Count 4.25 M/mm3 (3.80-5.20); White Blood Cell Count 5.75 K/mm3 (4.00-11.30)
[2023-03-03 23:56] LABS: Alanine Aminotransfer (ALT/SGP 24 U/L (12-78); Albumin, Blood 3.2 g/dL (3.4-5.0); Alk Phos 51 U/L (50-136); Anion Gap 9 mmol/L (6-16); Aspartate Aminotrans (AST/SGOT 21 U/L (12-37); Bilirubin, Total 0.3 mg/dL (0.1-1.0); Blood Urea Nitrogen 22 mg/dL (8-24); Bun/Creatinine Ratio 13.4 (12.0-20.0); CHOL/HDL RATIO 4.1; CO2, Blood 21 mmol/L (21-32); Calcium, Blood 9.2 mg/dL (8.5-10.1); Chloride, Blood 113 mmol/L (98-108); Cholesterol 171 mg/dL (50-200); Creatinine, Blood 1.64 mg/dL (0.40-1.00); Globulin, Blood 3.1 g/dL (2.2-4.0); Glomerular Filtration Rate 36 (60-); Glucose, Blood 95 mg/dL (70-99); HDL Cholesterol 42 mg/dL (>39); LDL/HDL RATIO 1.2; Low Density Lipoprotein Chol 51 mg/dL (0-110); Sodium, Blood 143 mmol/L (136-145); Total Protein, Blood 6.3 g/dL (6.4-8.2); Triglycerides 392 mg/dL (30-160); Very Low Density Lipoprot Chol 78 mg/dL (6-32)
== END ==
LOC: LAB SHORT 18:05 → LAB 18:05
PROVIDERS: Nurse Practitioner Family
DX: E55.9 Vitamin D deficiency, unspecified (principal); I10 Essential (primary) hypertension; E78.5 Hyperlipidemia, unspecified
CPT/HCPCS: 80053; 80061; 82306; 84443; 85025

== ENCOUNTER → 2023-10-02 | Outpatient (CLI) | payer OTHER ==
[2023-10-02 17:32] LABS: BASOPHILS ABSOLUTE AUTO 0.04 K/mm3 (0.00-0.23); BASOPHILS PERCENT AUTO 1 % (0-2); EOSINOPHILS ABSOLUTE AUTO 0.24 K/mm3 (0.00-0.68); EOSINOPHILS PERCENT AUTO 4 % (0-6); Hematocrit 40.1 % (33.0-51.0); Hemoglobin 13.1 g/dL (11.5-16.0); IMMATURE GRAN ABSOLUTE AUTO 0.05 K/mm3 (0.00-0.10); IMMATURE GRAN PERCENT AUTO 1 % (0-1); LYMPHOCYTES ABSOLUTE AUTO 1.48 K/mm3 (0.84-5.20); LYMPHOCYTES PERCENT AUTO 27 % (21-46); MONOCYTES ABSOLUTE AUTO 0.44 K/mm3 (0.16-1.47); MONOCYTES PERCENT AUTO 8 % (4-13); Mean Corpuscular HGB 29.7 pg (26.0-34.0); Mean Corpuscular HGB Conc 32.7 g/dL (31.5-36.5); Mean Corpuscular Volume 91 fL (80-100); Mean Platelet Volume 10.1 fL (9.1-12.4); NEUTROPHILS ABSOLUTE AUTO 3.17 K/mm3 (1.96-9.15); NEUTROPHILS PERCENT AUTO 59 % (41-73); Platelet Count 234 K/mm3 (150-400); RDW Coefficient Variation 14.2 % (11.7-14.2); RDW Standard Deviation 46.8 fL (35.1-46.3); Red Blood Cell Count 4.41 M/mm3 (3.80-5.20); White Blood Cell Count 5.42 K/mm3 (4.00-11.30)
[2023-10-02 19:39] LABS: Alanine Aminotransfer (ALT/SGP 33 U/L (12-78); Albumin, Blood 3.6 g/dL (3.4-5.0); Albumin/Globulin Ratio 1.1 (0.8-1.8); Alk Phos 63 U/L (50-136); Anion Gap 5 mmol/L (6-16); Aspartate Aminotrans (AST/SGOT 26 U/L (12-37); Bilirubin, Total 0.4 mg/dL (0.1-1.0); Blood Urea Nitrogen 23 mg/dL (8-24); Bun/Creatinine Ratio 14.1 (12.0-20.0); CHOL/HDL RATIO 4.6; CO2, Blood 28 mmol/L (21-32); Calcium, Blood 9.4 mg/dL (8.5-10.1); Chloride, Blood 107 mmol/L (98-108); Cholesterol 194 mg/dL (50-200); Creatinine, Blood 1.63 mg/dL (0.40-1.00); Globulin, Blood 3.4 g/dL (2.2-4.0); Glomerular Filtration Rate 36 (60-); Glucose, Blood 173 mg/dL (70-99); HDL Cholesterol 42 mg/dL (>39); LDL/HDL RATIO Unable to Calculate; Low Density Lipoprotein Chol Unable to Calculate mg/dL (0-110); Potassium, Blood 3.7 mmol/L (3.5-5.5); Sodium, Blood 140 mmol/L (136-145); Triglycerides 463 mg/dL (30-160); Very Low Density Lipoprot Chol Unable to Calculate mg/dL (6-32)
[2023-10-02 19:56] LABS: LDL Direct Measurement 92 mg/dL (0-130)
[2023-10-02 20:07] LABS: Creatinine, Urine Random 90.6 mg/dL (27.00-270.00)
== END ==
LOC: LAB 16:45 → LAB SHORT 16:45
PROVIDERS: Family Medicine
DX: E11.9 Type 2 diabetes mellitus without complications (principal); E78.5 Hyperlipidemia, unspecified
CPT/HCPCS: 80053; 80061; 82043; 82570; 83721; 85025

== ENCOUNTER 2024-02-20 03:31 | Inpatient (IN) | payer OTHER ==
[~2024-02-20] VITALS: Ht 170.2 cm; Wt 117.0 kg
[2024-02-25 07:17] VITALS: BP 159/109
== END 2024-02-25 13:26 | disposition home health service (06) | DRG 180 ==
LOC: ER 03:31 → PCU 06:24 → ICUE 06:24 → PCU 02-21 17:57 → MEDS 02-23 12:18 → ENPENDDIS 02-25 10:46 → MEDS 02-25 13:26
PROVIDERS: ADMIT Student in an Organized Health Care Education/Training Program
PROC: 30233N1 Transfusion of Nonautologous Red Blood Cells into Peripheral Vein, Percutaneous Approach (ICD-10-PCS; 2024-02-20)
PROC: 3E033XZ Introduction of Vasopressor into Peripheral Vein, Percutaneous Approach (ICD-10-PCS; 2024-02-20)
PROC: 30233N1 Transfusion of Nonautologous Red Blood Cells into Peripheral Vein, Percutaneous Approach (ICD-10-PCS; principal; 2024-02-24)
DX: C34.11 Malignant neoplasm of upper lobe, right bronchus or lung (principal); A41.9 Sepsis, unspecified organism; J18.9 Pneumonia, unspecified organism; J96.01 Acute respiratory failure with hypoxia; R65.20 Severe sepsis without septic shock; N17.9 Acute kidney failure, unspecified; C34.31 Malignant neoplasm of lower lobe, right bronchus or lung; E87.21 Acute metabolic acidosis; E11.22 Type 2 diabetes mellitus with diabetic chronic kidney disease; D64.81 Anemia due to antineoplastic chemotherapy; T45.1X5A Adverse effect of antineoplastic and immunosuppressive drugs, initial encounter; I12.9 Hypertensive chronic kidney disease with stage 1 through stage 4 chronic kidney disease, or unspecified chronic kidney disease; N18.30 Chronic kidney disease, stage 3 unspecified; M51.36 Other intervertebral disc degeneration, lumbar region; D63.1 Anemia in chronic kidney disease; I25.2 Old myocardial infarction; E78.5 Hyperlipidemia, unspecified; G43.909 Migraine, unspecified, not intractable, without status migrainosus; E11.51 Type 2 diabetes mellitus with diabetic peripheral angiopathy without gangrene; Z86.79 Personal history of other diseases of the circulatory system; Z98.890 Other specified postprocedural states; Z98.51 Tubal ligation status; Z90.49 Acquired absence of other specified parts of digestive tract; F17.210 Nicotine dependence, cigarettes, uncomplicated; Z93.0 Tracheostomy status; Z79.899 Other long term (current) drug therapy; Z79.84 Long term (current) use of oral hypoglycemic drugs; E66.9 Obesity, unspecified; Z68.39 Body mass index [BMI] 39.0-39.9, adult

== ENCOUNTER → 2024-02-26 | Outpatient (CLI) | payer OTHER ==
[~2024-02-26] MED LIST changes: +ALBU2.5V5 INH; +AMOX-CLAV 500-1 EAC5 PO; -ATOR10 PO; +ATOR40TA PO; +BUPROPION XL150 M1 PO; +COLCRYS0.6 M1 PO; +DECARA1250 MC1 PO; +ELIQUIS2.5 MG PO; +ELIQUIS5 M3 PO; +FLUTICASONE-SA1 EAC9 INH; +Fenofibrate134 MG PO; +GLIP2.5ER PO; +MONT10T PO; +PANT20 PO; +SENN187 PO; +SILDENAFIL CITR20 M1 PO; +TRAZ50 PO; +VISBIOME 112.51 EACH PO
[2024-02-26 18:51] LABS: BASOPHILS ABSOLUTE AUTO 0.03 K/mm3 (0.00-0.23); BASOPHILS PERCENT AUTO 1 % (0-2); EOSINOPHILS ABSOLUTE AUTO 0.16 K/mm3 (0.00-0.68); EOSINOPHILS PERCENT AUTO 3 % (0-6); Hematocrit 28.1 % (33.0-51.0); Hemoglobin 8.7 g/dL (11.5-16.0); IMMATURE GRAN ABSOLUTE AUTO 0.06 K/mm3 (0.00-0.10); IMMATURE GRAN PERCENT AUTO 1 % (0-1); LYMPHOCYTES ABSOLUTE AUTO 0.39 K/mm3 (0.84-5.20); LYMPHOCYTES PERCENT AUTO 6 % (21-46); MONOCYTES ABSOLUTE AUTO 0.56 K/mm3 (0.16-1.47); MONOCYTES PERCENT AUTO 9 % (4-13); Mean Corpuscular HGB 31.6 pg (26.0-34.0); Mean Corpuscular Volume 102 fL (80-100); Mean Platelet Volume 9.6 fL (9.1-12.4); NEUTROPHILS ABSOLUTE AUTO 5.29 K/mm3 (1.96-9.15); NEUTROPHILS PERCENT AUTO 82 % (41-73); NRBC ABSOLUTE 0.03 K/mm3 (0.00-0.02); NRBC Auto 0.5 /100 WBC (0.0-0.2); Platelet Count 355 K/mm3 (150-400); RDW Coefficient Variation 17.9 % (11.7-14.2); RDW Standard Deviation 68.2 fL (35.1-46.3); Red Blood Cell Count 2.75 M/mm3 (3.80-5.20); White Blood Cell Count 6.49 K/mm3 (4.00-11.30)
[2024-02-26 19:11] LABS: Albumin, Blood 2.2 g/dL (3.4-5.0); Albumin/Globulin Ratio 0.5 (0.8-1.8); Bilirubin, Total 0.7 mg/dL (0.1-1.0); Bun/Creatinine Ratio 20.5 (12.0-20.0); Calcium, Blood 9.2 mg/dL (8.5-10.1); Creatinine, Blood 1.51 mg/dL (0.40-1.00); Globulin, Blood 4.5 g/dL (2.2-4.0); Total Protein, Blood 6.7 g/dL (6.4-8.2)
== END ==
LOC: LAB 13:45 → LAB SHORT 13:45
PROVIDERS: Family Medicine
DX: E11.9 Type 2 diabetes mellitus without complications (principal)
CPT/HCPCS: 80053; 85025

== ENCOUNTER → 2024-09-13 | Outpatient (CLI) | payer OTHER ==
[~2024-09-13] MED LIST changes: +ALBU90OI INH; +DOXYCYCLINE HYC50 M1 PO; +Nicoderm Cq1 EAC1 TOP
[2024-09-13 17:56] LABS: BASOPHILS ABSOLUTE AUTO 0.03 K/mm3 (0.00-0.23); BASOPHILS PERCENT AUTO 0 % (0-2); EOSINOPHILS ABSOLUTE AUTO 0.21 K/mm3 (0.00-0.68); EOSINOPHILS PERCENT AUTO 3 % (0-6); Hematocrit 39.7 % (33.0-51.0); Hemoglobin 12.7 g/dL (11.5-16.0); IMMATURE GRAN ABSOLUTE AUTO 0.03 K/mm3 (0.00-0.10); IMMATURE GRAN PERCENT AUTO 0 % (0-1); LYMPHOCYTES ABSOLUTE AUTO 1.12 K/mm3 (0.84-5.20); LYMPHOCYTES PERCENT AUTO 16 % (21-46); MONOCYTES ABSOLUTE AUTO 0.45 K/mm3 (0.16-1.47); MONOCYTES PERCENT AUTO 7 % (4-13); Mean Corpuscular HGB 28.5 pg (26.0-34.0); Mean Corpuscular Volume 89 fL (80-100); Mean Platelet Volume 9.6 fL (9.1-12.4); NEUTROPHILS ABSOLUTE AUTO 5.06 K/mm3 (1.96-9.15); NEUTROPHILS PERCENT AUTO 74 % (41-73); Platelet Count 251 K/mm3 (150-400); RDW Coefficient Variation 15.9 % (11.7-14.2); RDW Standard Deviation 51.8 fL (35.1-46.3); Red Blood Cell Count 4.45 M/mm3 (3.80-5.20)
[2024-09-13 18:26] LABS: Alanine Aminotransfer (ALT/SGP 24 U/L (12-78); Albumin/Globulin Ratio 0.8 (0.8-1.8); Alk Phos 130 U/L (50-136); Anion Gap 11 mmol/L (3-11); Aspartate Aminotrans (AST/SGOT 21 U/L (12-37); Bilirubin, Total 0.7 mg/dL (0.1-1.0); Blood Urea Nitrogen 23 mg/dL (8-24); Bun/Creatinine Ratio 18.3 (12.0-20.0); CHOL/HDL RATIO 3.3; CO2, Blood 26 mmol/L (21-32); Calcium, Blood 9.7 mg/dL (8.5-10.1); Chloride, Blood 109 mmol/L (98-108); Cholesterol 164 mg/dL (50-200); Creatinine, Blood 1.26 mg/dL (0.40-1.00); Globulin, Blood 3.7 g/dL (2.2-4.0); Glomerular Filtration Rate 49 (60-); Glucose, Blood 97 mg/dL (70-99); HDL Cholesterol 50 mg/dL (>39); Low Density Lipoprotein Chol 52 mg/dL (0-110); Potassium, Blood 3.9 mmol/L (3.5-5.5); Sodium, Blood 142 mmol/L (136-145); Total Protein, Blood 6.7 g/dL (6.4-8.2); Triglycerides 309 mg/dL (30-160); Very Low Density Lipoprot Chol 61 mg/dL (6-32)
== END | disposition home or self-care (01) ==
LOC: LAB 16:53 → LAB SHORT 16:53
PROVIDERS: Nurse Practitioner Family
DX: E78.5 Hyperlipidemia, unspecified (principal); E55.9 Vitamin D deficiency, unspecified; I10 Essential (primary) hypertension
CPT/HCPCS: 80053; 80061; 82306; 84443; 85025

== ENCOUNTER 2024-12-08 14:10 | Emergency (ER) | payer OTHER ==
[~2024-12-08] VITALS: Ht 165.1 cm; Wt 102.1 kg
[2024-12-08 14:41] VITALS: BP 160/103
== END 2024-12-08 14:46 | disposition home or self-care (01) ==
LOC: ER 14:10
DX: E11.65 Type 2 diabetes mellitus with hyperglycemia (principal); I10 Essential (primary) hypertension; E78.5 Hyperlipidemia, unspecified; Z79.899 Other long term (current) drug therapy; Z79.51 Long term (current) use of inhaled steroids; Z91.018 Allergy to other foods
CPT/HCPCS: 99282

== ENCOUNTER → 2024-12-08 | Outpatient (CLI) | payer OTHER ==
[2024-12-08 12:09] LABS: BASOPHILS ABSOLUTE AUTO 0.04 K/mm3 (0.00-0.23); BASOPHILS PERCENT AUTO 1 % (0-2); EOSINOPHILS ABSOLUTE AUTO 0.17 K/mm3 (0.00-0.68); EOSINOPHILS PERCENT AUTO 2 % (0-6); Hematocrit 37.4 % (33.0-51.0); Hemoglobin 12.7 g/dL (11.5-16.0); IMMATURE GRAN ABSOLUTE AUTO 0.04 K/mm3 (0.00-0.10); IMMATURE GRAN PERCENT AUTO 1 % (0-1); LYMPHOCYTES ABSOLUTE AUTO 1.13 K/mm3 (0.84-5.20); LYMPHOCYTES PERCENT AUTO 15 % (21-46); MONOCYTES ABSOLUTE AUTO 0.53 K/mm3 (0.16-1.47); MONOCYTES PERCENT AUTO 7 % (4-13); Mean Corpuscular HGB 28.9 pg (26.0-34.0); Mean Corpuscular Volume 85 fL (80-100); Mean Platelet Volume 9.7 fL (9.1-12.4); NEUTROPHILS ABSOLUTE AUTO 5.66 K/mm3 (1.96-9.15); NEUTROPHILS PERCENT AUTO 75 % (41-73); Platelet Count 189 K/mm3 (150-400); RDW Standard Deviation 43.4 fL (35.1-46.3); Red Blood Cell Count 4.39 M/mm3 (3.80-5.20); White Blood Cell Count 7.57 K/mm3 (4.00-11.30)
[2024-12-08 13:16] LABS: Albumin, Blood 2.5 g/dL (3.4-5.0); Albumin/Globulin Ratio 0.7 (0.8-1.8); Bilirubin, Total 0.5 mg/dL (0.1-1.0); Bun/Creatinine Ratio 16.3 (12.0-20.0); Calcium, Blood 10.6 mg/dL (8.5-10.1); Creatinine, Blood 1.41 mg/dL (0.40-1.00); Globulin, Blood 3.6 g/dL (2.2-4.0); Potassium, Blood 4.1 mmol/L (3.5-5.5); Total Protein, Blood 6.1 g/dL (6.4-8.2)
== END ==
LOC: LAB 11:58 → LAB SHORT 11:58
PROVIDERS: Internal Medicine Hematology & Oncology
DX: C34.31 Malignant neoplasm of lower lobe, right bronchus or lung (principal)
CPT/HCPCS: 80053; 85025

== ENCOUNTER → 2025-02-11 | Day surgery (SDC) | payer OTHER ==
[~2025-02-11] MED LIST changes: +ARTHRITIS PAIN150 GM TOP; +BENAZEPRIL HCL40 M1 PO; +BUPROPION HCL75 MG PO; -BUPROPION XL150 M1 PO; -Benazepril HCl20 MG PO; +ELIQUIS5 M2 PO; +FISH OIL 1,0001 EA10 PO; +GABA300 PO; -GLIP2.5ER PO; +GLIP5ER PO; +INSULANPEN SC; +LASIX20 M2 PO; +MELO7.5 PO; +METFORMIN HCL750 MG PO; +ONDA8 PO; +REVATIO20 MG PO; +SUCR1 PO; +TIZANIDINE HCL2 M1 PO
== END ==
LOC: MOI US 10:15
DX: N63.11 Unspecified lump in the right breast, upper outer quadrant (principal)
CPT/HCPCS: 19285; 77065; A4648

== ENCOUNTER 2025-02-16 08:49 | Day surgery (SDC) | payer OTHER ==
[~2025-02-16] VITALS: Ht 165.1 cm; Wt 98.2 kg
[2025-02-16] VITALS (11 sets, daily range): BP systolic 116–161; BP diastolic 79–118
[2025-02-16] MEDS ORDERED: CeFAZolin Sodium 2,000 MG in NS 100 ML IV SCH (09:25)
[2025-02-16] MEDS ORDERED: Lactated Ringer's 1,000 ML IV SCH (09:25)
[2025-02-16] MEDS ORDERED: propofoL 20 ML IV ONE (09:45)
[2025-02-16] MEDS ORDERED: FentaNYL Citrate 50 MCG/ML 2 ML Injection ONE (09:52)
--- NOTE | 2025-02-16 10:14 | NUR ---
History, Chart, Medications and Allergies reviewed before start of procedure. Patient reports completing Chlorhexadine shower X1 Prior to admission to hospital. Pre-Op teaching done. Pt verbalizes understanding. Lungs clear T/O to Auscultation. Patient confirms NPO status and agrees with scheduled surgery.
[2025-02-16] MEDS ORDERED: CeFAZolin Sodium 2,000 MG VIAL ONE (10:19)
[2025-02-16] MEDS ORDERED: Bupivacaine 0.5% HCl 5 MG/ML 30MLVIAL ONE (10:36)
[2025-02-16] MEDS ORDERED: Midazolam HCl 1MG / ML 2ML Vial ONE (10:52)
[2025-02-16] MEDS ORDERED: Ondansetron HCl 2 MG / ML 2ML Vial ONE (10:54)
[2025-02-16] MEDS ORDERED: Dexamethasone Sod Phos 10 MG/ML 1ML VIAL ONE (10:54)
[2025-02-16] MEDS ORDERED: Midazolam HCl 1MG / ML 2ML Vial IV ONE (10:55)
[2025-02-16] MEDS ORDERED: ePHEDrine Sulfate 50 MG/ML 1ML Injection ONE (11:48)
[2025-02-16] MEDS ORDERED: HYDROcodone 5-APAP 325 TAB PO PRN (12:10)
--- NOTE | 2025-02-16 13:26 | NUR ---
DISCHARGE NOTE PT A&OX4, BREATHING RA, TOLERATING PO INTAKE, NO APPARENT DISTRESS, AT BEDSIDE. ICE PACK TO SURGICAL SITE. BREAST BINDER IN PLACE. Patient up to Ambulate independently. Gait steady. Discharge instructions reviewed with patient. Patient verbalizes understanding. Copy given to patient to take home. Dressing to procedure site clean, dry, intact with no visible drainage, swelling, erythema or bruising noted. Discharged via wheelchair to private car for ride home. GLASSES IN PLACE AT DISCHARGE.
== END 2025-02-16 13:23 | disposition home or self-care (01) ==
LOC: ORSCMMR 08:49 → ORD 10:00 → ORSCMMR 13:23
PROVIDERS: Surgery
PROC: 0HBT0ZZ Excision of Right Breast, Open Approach (ICD-10-PCS; principal; 2025-02-16 10:00)
DX: D05.11 Intraductal carcinoma in situ of right breast (principal); Z17.1 Estrogen receptor negative status [ER-]; Z17.22 Progesterone receptor negative status; I12.9 Hypertensive chronic kidney disease with stage 1 through stage 4 chronic kidney disease, or unspecified chronic kidney disease; E11.22 Type 2 diabetes mellitus with diabetic chronic kidney disease; N18.30 Chronic kidney disease, stage 3 unspecified; Z79.4 Long term (current) use of insulin; Z79.84 Long term (current) use of oral hypoglycemic drugs; I48.0 Paroxysmal atrial fibrillation; Z79.01 Long term (current) use of anticoagulants; J44.9 Chronic obstructive pulmonary disease, unspecified; F17.210 Nicotine dependence, cigarettes, uncomplicated; I25.10 Atherosclerotic heart disease of native coronary artery without angina pectoris; I25.2 Old myocardial infarction; F41.9 Anxiety disorder, unspecified; F32.A Depression, unspecified; Z79.899 Other long term (current) drug therapy; K21.9 Gastro-esophageal reflux disease without esophagitis
CPT/HCPCS: 82947; A9270; J0690; J1100; J2250; J2405; J2704; J3010; J7120

== ENCOUNTER → 2025-02-23 | Outpatient (CLI) | payer OTHER ==
[2025-02-23 18:54] LABS: Bacterial Vaginosis PCR Negative (NEGATIVE); Candida Group, PCR NOT DETECTED (NOT DETECT); Candida glabrata-krusei, PCR NOT DETECTED (NOT DETECT)
== END | disposition home or self-care (01) ==
LOC: LAB SHORT 16:04 → LAB 16:04
PROVIDERS: Nurse Practitioner Obstetrics & Gynecology
DX: N89.8 Other specified noninflammatory disorders of vagina (principal)
CPT/HCPCS: 81515

== ENCOUNTER → 2025-03-02 | Outpatient (CLI) | payer OTHER ==
[2025-03-03 19:08] LABS: Protein, Urine Quantitative 345.8 mg/dL (0.0-11.9)
== END ==
LOC: LAB SHORT 07:00 → LAB 07:00 → LAB FUT 02-28 14:40
PROVIDERS: Internal Medicine Nephrology
DX: N18.30 Chronic kidney disease, stage 3 unspecified (principal); D75.1 Secondary polycythemia; N25.81 Secondary hyperparathyroidism of renal origin; E78.00 Pure hypercholesterolemia, unspecified; E27.0 Other adrenocortical overactivity; R76.9 Abnormal immunological finding in serum, unspecified; R94.5 Abnormal results of liver function studies; G60.9 Hereditary and idiopathic neuropathy, unspecified
CPT/HCPCS: 81050; 82043; 82570; 84156

== ENCOUNTER → 2025-07-20 | Outpatient (CLI) | payer OTHER ==
[2025-07-20 20:00] LABS: Protein, Urine Quantitative 143.2 mg/dL (0.0-11.9)
[2025-07-20 20:10] LABS: Microalbumin, Urine Quant. 891.0 mg/L (0.000-20.000)
== END ==
LOC: LAB 11:00 → LAB SHORT 11:00
PROVIDERS: Internal Medicine Nephrology
DX: E11.22 Type 2 diabetes mellitus with diabetic chronic kidney disease (principal); N18.30 Chronic kidney disease, stage 3 unspecified; D63.1 Anemia in chronic kidney disease; N25.81 Secondary hyperparathyroidism of renal origin; E55.9 Vitamin D deficiency, unspecified; E78.00 Pure hypercholesterolemia, unspecified; R76.9 Abnormal immunological finding in serum, unspecified; R94.5 Abnormal results of liver function studies; R94.6 Abnormal results of thyroid function studies
CPT/HCPCS: 81050; 82043; 82570; 84156

== ENCOUNTER → 2025-08-25 | Outpatient (CLI) | payer OTHER ==
[2025-08-25 18:59] LABS: Protein, Urine Quantitative 99.8 mg/dL (0.0-11.9)
[2025-08-25 19:01] LABS: Microalbumin, Urine Quant. 767.0 mg/L (0.000-20.000)
== END ==
LOC: LAB 10:00 → LAB SHORT 10:00
PROVIDERS: Internal Medicine Nephrology
DX: N18.30 Chronic kidney disease, stage 3 unspecified (principal); D63.1 Anemia in chronic kidney disease; N25.81 Secondary hyperparathyroidism of renal origin; E55.9 Vitamin D deficiency, unspecified; R76.9 Abnormal immunological finding in serum, unspecified; R94.5 Abnormal results of liver function studies; R94.6 Abnormal results of thyroid function studies
CPT/HCPCS: 81050; 82043; 82570; 84156

== ENCOUNTER 2025-09-27 12:01 | Day surgery (SDC) | payer OTHER ==
[~2025-09-27] VITALS: Ht 165.1 cm; Wt 102.4 kg
[~2025-09-27 12:01] MED LIST changes: +Balanced Salt Epinephrine Irrigation Solution 500 mL IR SCH; +Moxifloxacin HCL 0.5 MG/0.1 ML 0.4MLSYR LEFTEYE SCH; +Ondansetron 4 MG SoluTab MM PRN; +PHENYLEPHRINE\\TROPICAMIDE\\TETRACAINE OPHTHALMIC DILATING SOLN LEFTEYE PRN; +Povidone-Iodine 450 DROP/30 ML Solution LEFTEYE SCH; +Povidone-Iodine 450 DROP/30 ML Solution ONE; +Tetracaine HCl/Pf 0.5% Opth Soln 4 ml ONE
[2025-09-27] MEDS ORDERED: Fenofibrate134 MG PO (12:22)
--- NOTE | 2025-09-27 12:35 | NUR ---
09/27/25 1235 Chacho Ferreira CALL LIGHT WITHIN REACH. PT ON CONTINOUS PULSE OXIMETR FOR CLOSE MONITORING. EYE DROPS IN AROUND [id number]
--- NOTE | 2025-09-27 12:56 | NUR ---
09/27/25 1256 Belkys Perez HR:66 RR:14 BP:124/85 SP02:95% ON 10L BLOW BY O2
[2025-09-27 13:18] VITALS: BP 119/89
== END 2025-09-27 13:29 | disposition home or self-care (01) ==
LOC: ORSCSDS 12:01
PROVIDERS: Student in an Organized Health Care Education/Training Program
PROC: 08RK3JZ Replacement of Left Lens with Synthetic Substitute, Percutaneous Approach (ICD-10-PCS; principal; 2025-09-27 13:30)
DX: E11.36 Type 2 diabetes mellitus with diabetic cataract (principal); H25.813 Combined forms of age-related cataract, bilateral; E11.22 Type 2 diabetes mellitus with diabetic chronic kidney disease; I12.9 Hypertensive chronic kidney disease with stage 1 through stage 4 chronic kidney disease, or unspecified chronic kidney disease; N18.30 Chronic kidney disease, stage 3 unspecified; F41.1 Generalized anxiety disorder; I25.10 Atherosclerotic heart disease of native coronary artery without angina pectoris; J44.9 Chronic obstructive pulmonary disease, unspecified; I73.9 Peripheral vascular disease, unspecified; I48.0 Paroxysmal atrial fibrillation; Z79.01 Long term (current) use of anticoagulants; Z79.84 Long term (current) use of oral hypoglycemic drugs; Z79.4 Long term (current) use of insulin; Z79.899 Other long term (current) drug therapy; Z87.891 Personal history of nicotine dependence
CPT/HCPCS: A9270; V2632